=== PATIENT | male | born 2000 | race Caucasian/White ===

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

== ENCOUNTER 2019-11-27 14:54 | Emergency (ER) | payer BC, OTHER ==
[2019-11-27 14:59] VITALS: BP 128/66
[2019-11-27] MEDS ORDERED: LIDOCAINE 1% INJ-PF (10 MG/ML) 30 ML SDV INJ ONE (15:25)
[2019-11-27] MEDS ORDERED: IBUPROFEN 600 MG TABLET PO ONE (15:32)
--- NOTE | 2019-11-27 15:32 | ER Document Report ---
HPI - HPI Time Seen by Provider: 11/27/19 14:55 Pain Level: 3 Context: Healthy 19-year-old [id number] male with no past medical history presents to the emergency department with a dog bite to his left ring finger sustained just prior to arrival. Patient states he was breaking up a fight between the family dogs and 1 of them bit him. Prior to arrival he did soak the wound in some Shur-Clens. Tetanus is up-to-date. There is still active oozing blood at the wound site. - REPRODUCTIVE Reproductive: DENIES: : Past Medical History - Social History Smoking Status: Never Smoker Family History: Reviewed & Not Pertinent Patient has suicidal ideation: No Patient has homicidal ideation: No Renal/ Medical History: Denies: Hx Peritoneal Dialysis Musculoskeletal Medical History: Reports Hx Musculoskeletal Deformity, Reports Hx Musculoskeletal Trauma Past Surgical History: Reports: Hx Orthopedic Surgery - Left labrum tear - Immunizations Immunizations up to date: Yes Hx Diphtheria, Pertussis, Tetanus Vaccination: Yes Vertical Provider Document - CONSTITUTIONAL Notes: PHYSICAL EXAMINATION: Reviewed vital signs and charting by RN GENERAL: Alert, interacts well. No acute distress. HEAD: Normocephalic, atraumatic. EYES: Pupils equal and round. Extraocular movements intact. ENT: Oral mucosa moist NECK: Full range of motion. Trachea midline. EXTREMITIES: Moves all 4 extremities spontaneously. No edema, No cyanosis. There is a 1.5 cm laceration on the palmar aspect of the left ring finger DIP with some mild oozing and another wound on the dorsal aspect of the left ring finger, it is unclear if it is a puncture wound and a through and through. Flexor and extensor tendons intact to active motion and to resistance, brisk cap refill, sensation intact PSYCH: Normal affect, normal mood. SKIN: Warm, dry, normal turgor. See extremities - INFECTION CONTROL TRAVEL OUTSIDE OF THE [place] IN LAST 30 DAYS: No Course - Re-evaluation Re-evalutation: 11/27/19 15:30 The wound is []. The wound was copiously irrigated with normal saline and Betadine. The wound was explored for foreign bodies and none were found. The wound was prepped and draped in the normal sterile fashion. The wound was anesthetized using []. The edges were reapproximated using []. Bleeding was well controlled and the patient tolerated the procedure well. - Vital Signs Vital signs: Temp Pulse Resp BP Pulse Ox 98.1 F 72 16 128/66 H 100 11/27/19 14:58 11/27/19 14:58 11/27/19 14:58 11/27/19 14:58 11/27/19 14:58 Discharge - Discharge Clinical Impression: Laceration of left ring finger Qualifiers: Encounter type: initial encounter Damage to nail status: unspecified Foreign body presence: without foreign body Qualified Code(s): S61.215A - Laceration without foreign body of left ring finger without damage to nail, initial encounter Dog bite Qualifiers: Encounter type: initial encounter Qualified Code(s): W54.0XXA - Bitten by dog, initial encounter Condition: Good Disposition: HOME, SELF-CARE Additional Instructions: You were seen in the emergency department for a dog bite and a laceration. Because of the extent of the laceration we placed 3 loosely approximated sutures to cupola tapper helper healing. You have also been placed on prophylactic antibiotics. Please take Augmentin 2 times per day for 5 days. X-ray of your hand did not show any fracture, dislocation, or any retained foreign body. Also, we have placed your finger in a splint to prevent tension on the wound and to aid healing. Please also place antibiotic ointment on it 3 times per day and keep it dry for the first 24 hours. After that you can clean it with soap and water and apply a Band-Aid for protection. Please return to your primary doctor, the ED, or an urgent care in 7 days for suture removal. Return immediately if you develop spreading redness around the wound, pus from the wound, worsening pain, or a fever of >101. Keep the area clean and dry. Wash gently with soap and water twice daily and cover with antibiotic ointment. Referrals: HEALTH,EMPLOYEE [Primary Care Provider] - Follow up as needed
--- NOTE | 2019-11-27 15:53 | RADIOLOGY REPORT (SQ) ---
EXAM DESCRIPTION: HAND LEFT 3 VIEWS COMPLETED DATE/TIME: 11/27/2019 3:44 pm REASON FOR STUDY: dog bite L ring finger DIP COMPARISON: None. EXAM PARAMETERS: NUMBER OF VIEWS: Three views. TECHNIQUE: AP, lateral and oblique radiographic images acquired of the left hand. LIMITATIONS: None. FINDINGS: MINERALIZATION: Normal. BONES: No acute fracture or dislocation. No worrisome bone lesions. JOINTS: No effusions. Old well corticated avulsion fragment off the ulnar aspect, 3rd finger proximal phalanx at the PIP joint SOFT TISSUES: No soft tissue swelling. No foreign body. OTHER: No other significant finding. IMPRESSION: No acute findings TECHNICAL DOCUMENTATION: JOB ID: [id number] [employer]- All Rights Reserved Reading location - IP/workstation name: [id number]
[2019-11-27] MEDS ORDERED: AMOXICILLIN TR/POT CLAVULANATE 500-125 MG TAB PO ONE (16:24)
[2019-11-27] MEDS ORDERED: AMOXICILLIN TRIHYDRATE 500 MG CAPSULE PO ONE (16:25)
== END 2019-11-27 16:50 | disposition home or self-care (01) ==
LOC: ER 14:54
PROC: 0HQGXZZ Repair Left Hand Skin, External Approach (ICD-10-PCS; principal; 2019-11-27)
DX: S61.215A Laceration without foreign body of left ring finger without damage to nail, initial encounter (principal); W54.0XXA Bitten by dog, initial encounter
CPT/HCPCS: 99283; 73130; 12001; J3490

== ENCOUNTER 2019-12-27 16:39 | Emergency (ER) | payer OTHER ==
--- NOTE | 2019-12-27 16:47 | ER Document Report ---
ED Medical Screen (RME) - General Chief Complaint: Headache Stated Complaint: HEADACHE Time Seen by Provider: 12/27/19 16:40 Mode of Arrival: Ambulatory Information source: Patient, Parent Notes: Patient presents with his family for reports of altered mental status. Mom reports patient has not been acting himself. Has not been able to sleep for the last 4 days. Today he started shaking almost collapsed. He has been asking what his name is. No recent trauma no fever vomiting or diarrhea. No past medical history of mental health issues. I have greeted and performed a rapid initial assessment of this patient. A comprehensive ED assessment and evaluation of the patient, analysis of test results and completion of the medical decision making process will be conducted by additional ED providers. TRAVEL OUTSIDE OF THE [place] IN LAST 30 DAYS: No - Related Data Allergies/Adverse Reactions: cefdinir [Cefdinir] Allergy (Verified 11/27/19 15:11) Past Medical History Renal/ Medical History: Denies: Hx Peritoneal Dialysis Musculoskeltal Medical History: Reports Hx Musculoskeletal Deformity, Reports Hx Musculoskeletal Trauma Past Surgical History: Reports: Hx Orthopedic Surgery - Left labrum tear - Immunizations Immunizations up to date: Yes Hx Diphtheria, Pertussis, Tetanus Vaccination: Yes
[2019-12-27 17:15] LABS: ABSOLUTE LYMPHOCYTES (AUTO) 1.5 10^3/uL (0.5-4.7); ABSOLUTE MONOCYTES (AUTO) 0.5 10^3/uL (0.1-1.4); ABSOLUTE NEUT (AUTO) 5.1 10^3/uL (1.7-8.2); BASOPHILS % (AUTO) 0.5 % (0-2); EOSINOPHILS % (AUTO) 0.2 % (0-6); HEMATOCRIT 43.3 % (37.9-51.0); HEMOGLOBIN 15.1 g/dL (13.5-17.0); LYMPHOCYTES % (AUTO) 20.9 % (13-45); MEAN CORPUSCULAR HEMOGLOBIN 29.9 pg (27.0-33.4); MEAN CORPUSCULAR HGB CONC 34.9 g/dL (32.0-36.0); MEAN CORPUSCULAR VOLUME 86 fl (80-97); MONOCYTES % (AUTO) 7.3 % (3-13); PLATELET COUNT 264 10^3/uL (150-450); RED BLOOD COUNT 5.05 10^6/uL (4.35-5.55); RED CELL DISTRIBUTION WIDTH 12.7 % (11.5-14.0); SEGMENTED NEUTROPHILS % (AUTO) 71.1 % (42-78); TOTAL CELLS COUNTED % (AUTO) 100 %; WHITE BLOOD COUNT 7.2 10^3/uL (4.0-10.5)
[2019-12-27] MEDS ORDERED: HALOPERIDOL LACTATE INJ 5 MG/1 ML VIAL IV ONE (17:21)
--- NOTE | 2019-12-27 17:23 | RADIOLOGY REPORT (SQ) ---
EXAM DESCRIPTION: CT HEAD WITHOUT COMPLETED DATE/TIME: 12/27/2019 5:13 pm REASON FOR STUDY: ams COMPARISON: CT head 09/19/2017 TECHNIQUE: Axial images acquired through the brain without intravenous contrast. Images reviewed wi th bone, brain and subdural windows. Additional sagittal and coronal reconstructions were generated. Images stored on PACS. All CT scanners at this facility use dose modulation, iterative reconstruction, and/or weight based d osing when appropriate to reduce radiation dose to as low as reasonably achievable (ALARA). [facility]: Dose Right [facility]: CareDose [facility]: Dose Right [facility]: Teradose 4D [facility]: [employer] RADIATION DOSE: CT Rad equipment meets quality standard of care and radiation dose reduction techniq ues were employed. CTDIvol: 53.2 mGy. DLP: 1044 mGy-cm. mGy. LIMITATIONS: None. FINDINGS: VENTRICLES: Normal size and contour. CEREBRUM: No masses. No hemorrhage. No midline shift. No evidence for acute infarction. Normal gra y/white matter differentiation. No areas of low density in the white matter. CEREBELLUM: No masses. No hemorrhage. No alteration of density. No evidence for acute infarction. EXTRAAXIAL SPACES: No fluid collections. No masses. ORBITS AND GLOBE: No intra- or extraconal masses. Normal contour of globe without masses. CALVARIUM: No fracture. PARANASAL SINUSES: Small right maxillary sinus mucous retention cyst. SOFT TISSUES: No mass or hematoma. OTHER: No other significant finding. IMPRESSION: NORMAL BRAIN CT WITHOUT CONTRAST. EVIDENCE OF ACUTE STROKE: NO. COMMENT: Quality ID # [id number]: Final reports with documentation of one or more dose reduction techniques (e.g., Automated exposure control, adjustment of the mA and/or kV according to patient size, use of iterative reconstruction technique) TECHNICAL DOCUMENTATION: JOB ID: [id number] [employer]- All Rights Reserved Reading location - IP/workstation name: [email or web address]
--- NOTE | 2019-12-27 17:28 | ER Document Report ---
ED General - General Chief Complaint: Headache Stated Complaint: HEADACHE Time Seen by Provider: 12/27/19 16:40 Mode of Arrival: Ambulatory TRAVEL OUTSIDE OF THE [place] IN LAST 30 DAYS: No - HPI Notes: Patient is a 19-year-old male with no significant medical history who presents t o the emergency department for evaluation of altered mental status. His mother is the primary historian. She states that over the last several days patient has been exhibiting some strange behavior. He is been talking excessively about stress, worried about letting everyone down. He has been acting confused. Mother does not believe he has slept for the last 3 days. She gave him Benadryl without any significant results. He has lost about 15 pounds without any effort to do so. Today, he went to family talking about letting them down, then had a near syncopal episode. He has had intermittent shaking in bilateral upper extremities, 1 at a time. He was complaining of a headache to his mother prior to arrival. He initially stated it was there for a few days, tells me that he has only had pain for the last few minutes. He points to the left frontal region, than the right. - Related Data Allergies/Adverse Reactions: cefdinir [Cefdinir] Allergy (Verified 11/27/19 15:11) Home Medications: No medications Past Medical History - General Information source: Patient, Parent - Social History Smoking Status: Never Smoker Drug Abuse: Marijuana Family History: Reviewed & Not Pertinent, Other - Father's side of the family - unknown medical history Patient has suicidal ideation: No Patient has homicidal ideation: No Renal/ Medical History: Denies: Hx Peritoneal Dialysis Musculoskeletal Medical History: Reports Hx Musculoskeletal Deformity, Reports Hx Musculoskeletal Trauma Past Surgical History: Reports: Hx Orthopedic Surgery - Left labrum tear - Immunizations Immunizations up to date: Yes Hx Diphtheria, Pertussis, Tetanus Vaccination: Yes Review of Systems - Review of Systems Constitutional: See HPI EENT: No symptoms reported Cardiovascular: No symptoms reported Respiratory: No symptoms reported Gastrointestinal: No symptoms reported Genitourinary: No symptoms reported Musculoskeletal: No symptoms reported Skin: No symptoms reported Neurological/Psychological: See HPI Physical Exam - Vital signs Vitals: Resp BP Pulse Ox 19 136/79 H 100 12/27/19 16:40 12/27/19 16:40 12/27/19 16:40 - Notes Notes: Is a 19-year-old male who appears his stated age in no acute distress. He is lying in the bed. GCS 14. He opens his eyes to verbal stimuli, recognizes me. He exhibits an almost pill-rolling type motion to his hands intermittently. Vital signs reviewed, please refer to chart. Head is normocephalic, atraumatic. Pupils equal round, reactive to light. Neck is supple without meningismus. Heart is regular rate and rhythm. Lungs are clear to auscultation bilaterally. Abdomen is soft, nontender, normoactive bowel sounds throughout. Extremities without cyanosis, clubbing. Posterior calves are nontender. Peripheral pulses are equal. Skin is warm and dry. Patient is drowsy. He exhibits fine and then rough tremors in bilateral upper extremities intermittently. He becomes preoccupied with the IV, concerned he is "losing a lot of blood." There is no bleeding at the site. Patient is able to intermittently follow directions. He has no gross facial asymmetry, moves all 4 extremities spontaneously. Reflexes are symmetrical. Course - Re-evaluation Re-evalutation: 12/27/19 17:27 Patient presents to the emergency department for evaluation. On arrival his vitals are stable, he is afebrile. He has no signs of nuchal rigidity. He is, however, exhibiting constitutional symptoms in addition to psychiatric ones. Medical clearance labs are ordered. He does seem very disoriented, I consulted with Dr. Barker decision was made to proceed with Haldol. I am concerned that, if CT scan of the head is unremarkable, that MRI may be necessary to rule out other organic pathology. Mother is kept abreast of plan, we will continue to monitor. 12/27/19 18:03 Approximately 10 minutes after administration of Haldol, I was paged overhead, with concerns that the patient had seizure-like activity. I went and evaluated the patient. He did not have any seizure-like activity at that time. He did not appear significantly postictal, although I am aware that Haldol may in fact lowered the seizure threshold. Patient was medicated with Ativan. At this point, MRI of the brain is ordered to rule out arm organic pathology. Mother is amenable to this plan. We will continue to monitor. 12/27/19 20:31 Patient's MRI is unremarkable. The patient remained stable. Awaiting urinalysis. He did have a significant tachycardia upon standing to urinate. Orthostatic vital signs and fluids were ordered. We will continue to monitor. 12/27/19 21:45 Patient resting comfortably. He received IV fluids. Laboratory investigations are unremarkable. Patient's family feels comfortable taking him home. They already have an appointment with counselor tomorrow, we will continue to seek out possible psychiatric treatment. They understand that any changes in his status should prompt him to immediately return. We will send with a small amount of Ativan and close follow-up. - Vital Signs Vital signs: Temp Pulse Resp BP Pulse Ox 98.4 F 83 15 122/80 97 12/27/19 21:00 12/27/19 20:48 12/27/19 21:01 12/27/19 21:00 12/27/19 21:01 - Laboratory Result Diagrams: 12/27/19 16:45 12/27/19 16:45 Laboratory results interpreted by me: 12/27/19 12/27/19 16:45 20:37 Urine Ketones 20 H Salicylates < 1.0 L Acetaminophen < 10 L - Diagnostic Test Radiology reviewed: Reports reviewed Radiology results interpreted by me: 12/27/19 20:[address] 12/27/19 16:40 IMPRESSION: NORMAL BRAIN CT WITHOUT CONTRAST. EVIDENCE OF ACUTE STROKE: NO. Head MRI 12/27/19 17:56 IMPRESSION: UNREMARKABLE MRI OF THE BRAIN WITHOUT INTRAVENOUS GADOLINIUM CONTRAST. EVIDENCE OF ACUTE STROKE: NO. - EKG Interpretation by Me Additional EKG results interpreted by me: 12/27/19 18:04 Sinus tachycardia with rate of 101 bpm. Normal axis and intervals, no acute ST changes concerning for ischemia or infarction. Discharge - Discharge Clinical Impression: Altered mental status, unspecified, Orthostasis Condition: Stable Disposition: HOME, SELF-CARE Instructions: Altered Mental Status ([facility]) Additional Instructions: Follow-up with counselor tomorrow, primary care this week, and discuss psychiatry recommendations. Start Depakote as directed. Ativan as needed for restlessness, agitation. Return to the emergency department with worsening or new concerning symptoms of any sort.
[2019-12-27 17:36] LABS: ACETAMINOPHEN < 10 ug/mL (10-30); ALBUMIN 4.3 g/dL (3.5-5.0); ALCOHOL < 10 mg/dL (NONE DETECTED); ALKALINE PHOSPHATASE 103 U/L (38-126); ANION GAP 14 (5-19); ASPARTATE AMINO TRANSFERASE 40 U/L (17-59); BILIRUBIN,DIRECT 0.2 mg/dL (0.0-0.4); BILIRUBIN,TOTAL 0.9 mg/dL (0.2-1.3); BLOOD UREA NITROGEN 13 mg/dL (7-20); CALCIUM 9.4 mg/dL (8.4-10.2); CARBON DIOXIDE 24 mmol/L (22-30); CHLORIDE 99 mmol/L (98-107); GLUCOSE 94 mg/dL (75-110); POTASSIUM 3.8 mmol/L (3.6-5.0); SALICYLATE < 1.0 mg/dL (2.0-20.0); TOTAL PROTEIN 7.1 g/dL (6.3-8.2)
[2019-12-27] MEDS ORDERED: LORAZEPAM INJ 2 MG/1 ML VIAL IV ONE ×2 (17:41→17:59)
--- NOTE | 2019-12-27 18:50 | RADIOLOGY REPORT (SQ) ---
EXAM DESCRIPTION: MRI HEAD WITHOUT COMPLETED DATE/TIME: 12/27/2019 6:37 pm REASON FOR STUDY: altered mental status, seizure COMPARISON: CT head earlier performed on 12/27/2019. TECHNIQUE: Multiplanar imaging includes non-contrasted T1, T2, FLAIR, and diffusion with ADC map seq uences. Images stored on PACS. LIMITATIONS: None. FINDINGS: ANATOMY: No anomalies. Normal vascular flow voids. Pituitary fossa normal. CSF SPACES: Normal in size and contour. No hemorrhage. CEREBRUM: Sulci and gyri normal in size and contour. Normal white matter signal on FLAIR imaging. No evidence of hemorrhage, mass, or extraaxial fluid collection. No heterotopic kramer matter. Normal h ippocampal morphology and symmetric volume. POSTERIOR FOSSA: No signal alteration. No hemorrhage. No edema, masses or mass effect. Internal lashon tory canals, cerebello-pontine angles, mastoids normal. DIFFUSION IMAGING: Negative for acute or sub-acute infarction. ORBITS: No masses. Globes normal. PARANASAL SINUSES: Small right maxillary sinus mucous retention cyst. OTHER: No other significant finding. IMPRESSION: UNREMARKABLE MRI OF THE BRAIN WITHOUT INTRAVENOUS GADOLINIUM CONTRAST. EVIDENCE OF ACUTE STROKE: NO. TECHNICAL DOCUMENTATION: JOB ID: [id number] [employer]- All Rights Reserved Reading location - IP/workstation name: [email or web address]
[2019-12-27] MEDS ORDERED: NORMAL SALINE 1000 ML 1,000 ML IV ONE ×2 (20:30→20:48)
[2019-12-27 20:55] LABS: APPEARANCE,URINE CLEAR; BILIRUBIN,URINE NEGATIVE (NEGATIVE); COLOR,URINE YELLOW; GLUCOSE, URINE NEGATIVE (NEGATIVE); KETONES,URINE 20 mg/dL (NEGATIVE); LEUKOCYTE ESTERASE,URINE NEGATIVE (NEGATIVE); NITRITE,URINE NEGATIVE (NEGATIVE); PROTEIN,URINE NEGATIVE (NEGATIVE); URINE SPECIFIC GRAVITY 1.009; UROBILINOGEN,URINE NEGATIVE mg/dL (<2.0)
[2019-12-27 21:18] LABS: URINE AMPHETAMINES SCREEN NEGATIVE; URINE BARBITURATES SCREEN NEGATIVE; URINE BENZODIAZEPINES SCREEN NEGATIVE; URINE COCAINE SCREEN NEGATIVE; URINE MARIJUANA (THC) SCREEN NEGATIVE; URINE METHADONE SCREEN NEGATIVE; URINE PHENCYCLIDINE SCREEN NEGATIVE
[2019-12-27] MEDS ORDERED: DIVALPROEX SODIUM 250 MG TAB.SR.24H PO ONE (21:37)
[2019-12-27] MEDS ORDERED: LORAZEPAM 1 MG TABLET PO ONE (21:44)
--- NOTE | 2019-12-27 22:06 | ER Document Report ---
Doctor's Note Notes: 12/27/19 17:45 Pascual is a 19-year old male who presents to the emergency department with reported altered mental status, confusion, and acting bizarre. Per patient's mother, patient's older brother advised his mother approximately 3-4 days ago she should talk with the patient as he appeared depressed and stressed. She r eported she tried talking with her son who indicated he felt overwhelmed with school (the [employer] program), was struggling with low self-esteem, perceived failure, and overwhelming stress. Mother reported she had talked with patient about taking a leave of absence from this semester of school and resetting.Mother reported the patient was upset and cried uncontrollably at times, which is unlike him. She stated she believed he had no sleep in at least 3 days and he lost at least 15 pounds without intention. Mother reported the patient demonstrated intermittent asymmetrical shaking in one arm or the other. She indicated patient has no medical or mental health history and his father's side of the family for medical information is unknown. Assessment with Patient was limited secondary to his medical concerns. Patient indicated it was Saturday and reported he played basketball this morning with his brothers (mother reports this happened yesterday). He affirmed he was under a great deal of stress from school but was not able to provide any further meaningful information. While in the patient's room, he was observed to be restless, confused, stating he wanted to get into bed despite already being in bed, reporting having a headache for 20 minutes when he told his mother he experienced the headache for 3 days. Patient was given Haldol 5 mg IV by attending physician in an effort to decrease restless and help assist with sleep, however, approximately 10 minutes following administration of the Haldol the patient was observed to have intermittent, asymmetrical shaking, uncontrolled head / neck jerking, and rapid sitting up and jerking backwards. His behaviors were not entirely consistent with seizure like activity, however, following administration of lorazepam, the patient presented more oriented, identifying the nurses in the room as well as his mother. He made several statements such as " I just want my mom to be proud of me," " I just want to make my mom proud." Review of patient's labs and radiology reports revealed results within normal limits. Conversation with attending physician and patient mother, it is more likely than not the patient's presentation is the result of a combination of factors such as physical and mental exhaustion, tapped out coping resources, overwhelming stress from school and daily responsibilities, as well as internal maladaptive dialogue about his worthiness and ability to make his mother proud. At the time of this note, medical etiology has not been ruled as a cause for patient's ongoing presentation. Diagnoses 1. Deferred for now Impression/Plan: Continue to allow for medical work-up through attending physician. Psych to continue to monitor. Mother has already scheduled an outpatient therapy appointment for the patient on Saturday. A medication recommendation for depakote 250 mg twice per day for mood stabilization is made by consulting psychiatrist if no medical etiology is found. Avoidance of anti- psychotic medication is recommended given the patient's response to Haldol. Additionally, if not already done, an EEG and follow up with Neurology may prove beneficial to rule out new onset of seizures.
[2019-12-27 22:12] VITALS: BP 134/84
--- NOTE | 2019-12-28 00:21 | EKG REPORT ---
SEVERITY:- OTHERWISE NORMAL ECG - SINUS TACHYCARDIA : Confirmed by: Kiki Heard 28-Dec-2019 00:19:58
== END 2019-12-27 22:34 | disposition home or self-care (01) ==
LOC: ER 16:39
DX: R41.82 Altered mental status, unspecified (principal); I95.1 Orthostatic hypotension; R51 Headache
CPT/HCPCS: 93005; 99285; 96361; 96374; 96375; 36415; 87040; 80307 ×4; 85025; 80053; 81001; 70551; 70450; 93010; J1630; J3490; J2060; J7030

== ENCOUNTER 2019-12-29 12:03 | Emergency (ER) | payer OTHER ==
--- NOTE | 2019-12-29 12:10 | ER Document Report ---
ED Medical Screen (RME) - General Chief Complaint: Headache Stated Complaint: HEADACHE Time Seen by Provider: 12/29/19 12:04 Mode of Arrival: Ambulatory Information source: Parent Notes: 19-year-old male presented to ED for complaint of continued mental status changes altered mental status syncope with amnesia headaches. He was seen a couple days ago discharged home when he had a negative CT and MRI. I did speak with Dr. Castelan the radiologist. He stated that the patient needed an MRI with contrast and MRI. These have been ordered along with blood work. Mother stated that she talked with Dr. macdonald earlier today and she stated he needed to EEG but they are not able to get into psych or neurology for several weeks to a month. Patient has been ordered an MRI with contrast and MRA and was given Ativan 2 mg IV as he is not able to tolerate the MRI without sedation. Parents were at bedside. I have greeted and performed a rapid initial assessment of this patient. A comprehensive ED assessment and evaluation of the patient, analysis of test results and completion of medical decision making process will be conducted by an additional ED providers. TRAVEL OUTSIDE OF THE [place] IN LAST 30 DAYS: No - Related Data Allergies/Adverse Reactions: cefdinir [Cefdinir] Allergy (Verified 12/29/19 12:05) Past Medical History Renal/ Medical History: Denies: Hx Peritoneal Dialysis Musculoskeltal Medical History: Reports Hx Musculoskeletal Deformity, Reports Hx Musculoskeletal Trauma Past Surgical History: Reports: Hx Orthopedic Surgery - Left labrum tear - Immunizations Immunizations up to date: Yes Hx Diphtheria, Pertussis, Tetanus Vaccination: Yes Physical Exam - Vital signs Vitals: Temp Pulse Resp BP Pulse Ox 98.2 F 80 16 132/72 H 100 12/29/19 12:12/29/19 12:12/29/19 12:12/29/19 12:12/29/19 12:05 Course - Vital Signs Vital signs: Temp Pulse Resp BP Pulse Ox 98.2 F 80 16 132/72 H 100 12/29/19 12:05 12/29/19 12:05 12/29/19 12:12/29/19 12:05 12/29/19 12:05
[2019-12-29] MEDS ORDERED: LORAZEPAM INJ 2 MG/1 ML VIAL IV ONE ×2 (12:16→21:24)
[2019-12-29 12:47] LABS: ABSOLUTE BASOPHILS # (AUTO) 0.1 10^3/uL (0.0-0.2); ABSOLUTE LYMPHOCYTES (AUTO) 1.9 10^3/uL (0.5-4.7); ABSOLUTE MONOCYTES (AUTO) 0.5 10^3/uL (0.1-1.4); ABSOLUTE NEUT (AUTO) 4.1 10^3/uL (1.7-8.2); BASOPHILS % (AUTO) 0.8 % (0-2); EOSINOPHILS % (AUTO) 0.8 % (0-6); HEMATOCRIT 41.4 % (37.9-51.0); HEMOGLOBIN 15.1 g/dL (13.5-17.0); LYMPHOCYTES % (AUTO) 28.8 % (13-45); MEAN CORPUSCULAR HEMOGLOBIN 31.1 pg (27.0-33.4); MEAN CORPUSCULAR HGB CONC 36.3 g/dL (32.0-36.0); MEAN CORPUSCULAR VOLUME 86 fl (80-97); MONOCYTES % (AUTO) 6.9 % (3-13); PLATELET COUNT 295 10^3/uL (150-450); RED BLOOD COUNT 4.85 10^6/uL (4.35-5.55); RED CELL DISTRIBUTION WIDTH 12.7 % (11.5-14.0); SEGMENTED NEUTROPHILS % (AUTO) 62.7 % (42-78); TOTAL CELLS COUNTED % (AUTO) 100 %; WHITE BLOOD COUNT 6.5 10^3/uL (4.0-10.5)
[2019-12-29 12:59] LABS: INTERNATIONAL RATION (INR) 1.07; PROTHROMBIN TIME 13.9 SEC (11.4-15.4)
[2019-12-29 13:00] LABS: PARTIAL THROMBOPLASTIN TIME 28.5 SEC (23.5-35.8)
[2019-12-29 13:08] LABS: ALBUMIN 4.6 g/dL (3.5-5.0); ALKALINE PHOSPHATASE 116 U/L (38-126); ANION GAP 9 (5-19); ASPARTATE AMINO TRANSFERASE 28 U/L (17-59); BILIRUBIN,TOTAL 0.4 mg/dL (0.2-1.3); BLOOD UREA NITROGEN 11 mg/dL (7-20); CALCIUM 9.6 mg/dL (8.4-10.2); CARBON DIOXIDE 31 mmol/L (22-30); CHLORIDE 100 mmol/L (98-107); GLUCOSE 107 mg/dL (75-110); POTASSIUM 4.1 mmol/L (3.6-5.0); TOTAL PROTEIN 7.4 g/dL (6.3-8.2)
--- NOTE | 2019-12-29 13:14 | RADIOLOGY REPORT (SQ) ---
EXAM DESCRIPTION: MRA HEAD WITHOUT COMPLETED DATE/TIME: 12/29/2019 12:57 pm REASON FOR STUDY: continued altered mental status headache seizur COMPARISON: None. TECHNIQUE: Axial 3-D [id number] acquisition imaging performed through the brain in the area of t he [place]. Images reformatted using 3-D MIPS. LIMITATIONS: None. FINDINGS: SOURCE IMAGES: No unexpected findings on source images. No large masses. 3-D MIP: Normal variant hypoplastic left PCOM. No aneurysm. No occlusions. No significant stenosis . OTHER: No other significant finding. IMPRESSION: NORMAL MRA OF THE [place]. TECHNICAL DOCUMENTATION: JOB ID: [id number] [employer]- All Rights Reserved Reading location - IP/workstation name: [email or web address]
--- NOTE | 2019-12-29 13:16 | RADIOLOGY REPORT (SQ) ---
EXAM DESCRIPTION: MRI HEAD WITH COMPLETED DATE/TIME: 12/29/2019 12:57 pm REASON FOR STUDY: continued altered mental status headache seizur COMPARISON: Noncontrast 12/27/2019. TECHNIQUE: Axial coronal postgadolinium contrast T1 sequences. Images stored on PACS. CONTRAST TYPE AND DOSE: 10 mL Dotarem. RENAL FUNCTION: Not indicated. ACR Type II contrast agent associated with few, if any, unconfounded cases of NSF LIMITATIONS: None. FINDINGS: ANATOMY: No anomalies. Normal vascular flow voids. Pituitary fossa normal. CSF SPACES: Normal in size and contour. No hemorrhage. CEREBRUM: Sulci and gyri normal in size and contour. Normal white matter signal on FLAIR imaging. No evidence of hemorrhage, mass, or extraaxial fluid collection. No abnormal enhancement post contrast. POSTERIOR FOSSA: No signal alteration. No hemorrhage. No edema, masses, or mass effect. Internal lashon tory canals, cerebellopontine angles, mastoids normal. No enhancing lesions. No abnormal enhancement post contrast. DIFFUSION IMAGING: Negative for acute or subacute infarction. ORBITS: No masses. Globes normal. PARANASAL SINUSES: No fluid levels. Mucosa normal. OTHER: No other significant finding. IMPRESSION: NORMAL MRI OF THE BRAIN WITHOUT AND WITH INTRAVENOUS GADOLINIUM CONTRAST. EVIDENCE OF ACUTE STROKE: NO. TECHNICAL DOCUMENTATION: JOB ID: [id number] [employer]- All Rights Reserved Reading location - IP/workstation name: [email or web address]
--- NOTE | 2019-12-29 14:08 | ER Document Report ---
ED General - General Mode of Arrival: Ambulatory TRAVEL OUTSIDE OF THE [place] IN LAST 30 DAYS: No <TENA GALINDO - Last Filed: 12/29/19 19:59> <MARYANNE MATA - Last Filed: 12/29/19 21:37> - General Chief Complaint: Altered Mental Status Stated Complaint: HEADACHE Time Seen by Provider: 12/29/19 12:04 - HPI Notes: Patient is a 19-year-old male with no significant past medical history who presents to the emergency department for the second visit for altered mental status and changes in behavior that began 5 days ago for unknown reason. Mother states that he had an unremarkable work-up when he was here at his last visit and was placed on Depakote at that time. Mother states that things have just been getting worse since then. He continues to forget where he has been and what he has been doing that day. Mother states that he will stare off and have some twitching of his lips and tightening of his face. He will also have unusual finger and hand movements. Mother states that he has been fatigued and not acting himself. Denies any smoking, drugs, alcohol. Denies any synthetic drug use. He has had weight loss recently that is unintentional. Mother states that he had another near-syncopal episode this morning. He does complain of an intermittent right-sided headache that is dull and considered mild. No recent illness. No known tick bite. Triage provider noted that it looked like he was having an absence seizure in the room. Denies any current headache, fever, head injury, neck pain, changes in vision/hearing, URI, sore throat, chest pain, palpitations, syncope, cough, shortness of breath, wheeze, dyspnea, abdominal pain, nausea/vomiting/diarrhea, urinary retention, dysuria, hematuria, loss of control of bowel or bladder, numbness/tingling, saddle anesthesia, muscle paralysis/weakness, or rash. (TENA GALINDO) - Related Data Allergies/Adverse Reactions: cefdinir [Cefdinir] Allergy (Verified 12/29/19 12:05) Past Medical History - General Information source: Parent - Social History Smoking Status: Never Smoker Family History: Reviewed & Not Pertinent, Other - Father's side of the family - unknown medical history Patient has suicidal ideation: No Patient has homicidal ideation: No Renal/ Medical History: Denies: Hx Peritoneal Dialysis Musculoskeletal Medical History: Reports Hx Musculoskeletal Deformity, Reports Hx Musculoskeletal Trauma Past Surgical History: Reports: Hx Orthopedic Surgery - Left labrum tear - Immunizations Immunizations up to date: Yes Hx Diphtheria, Pertussis, Tetanus Vaccination: Yes <TENA GALINDO - Last Filed: 12/29/19 19:59> Review of Systems - Review of Systems -: Yes All other systems reviewed and negative <TENA GALINDO - Last Filed: 12/29/19 19:59> Physical Exam <TENA GALINDO - Last Filed: 12/29/19 19:59> - Vital signs Vitals: Temp Pulse Resp BP Pulse Ox 98.2 F 80 16 132/72 H 100 12/29/19 12:05 12/29/19 12:05 12/29/19 12:05 12/29/19 12:05 12/29/19 12:05 - Notes Notes: PHYSICAL EXAMINATION: GENERAL: Well-appearing, well-nourished and in no acute distress. A&Ox4. Answers questions appropriately. Pt does mumble some words and appears drowsy (he did receive 2mg ativan at triage for the MRI). He is not his normal personality (I do know him otherwise). HEAD: Atraumatic, normocephalic. Non-tender. EYES: Pupils equal round and reactive to light, extraocular movements intact, sclera anicteric, conjunctiva are normal. No nystagmus. vis powell intact. ENT: EAC clear b/l. TM's intact b/l without erythema, fluid, or perforation. Nares patent and without discharge. oropharynx clear without exudates. No tonsilar hypertrophy or erythema. Moist mucous membranes. No sinus tenderness. NECK: Normal range of motion, supple without lymphadenopathy. No rigidity/meningismus. No midline tenderness. LUNGS: Breath sounds clear to auscultation bilaterally and equal. No wheezes rales or rhonchi. HEART: Regular rate and rhythm without murmurs, rubs, gallops. ABDOMEN: Soft, nontender, nondistended abdomen. No guarding, no rebound. Normal bowel sounds present. No CVA tenderness bilaterally. Musculoskeletal: Ext b/l: FROM to passive/active. Strength 5+/5. No deficits noted. No bony tenderness of extremities. Extremities: No cyanosis, clubbing, or edema b/l. Peripheral pulses 2+. Capillary refill less than 2 seconds. NEUROLOGICAL: NIH 0. GCS 15. Cranial nerves grossly intact. Normal speech, normal gait. Normal sensory, motor exams. Reflexes 2+ b/l. AYUSH's negative. Pronator drift negative. Heel/mark, finger/nose wnl. Romberg neg. PSYCH: flat affect SKIN: Warm, Dry, normal turgor, no rashes or lesions noted. (TENA GALINDO) Course - Laboratory Result Diagrams: 12/29/19 12:20 12/29/19 12:20 <TENA GALINDO - Last Filed: 12/29/19 19:59> - Laboratory Result Diagrams: 12/29/19 12:20 12/29/19 12:20 - Diagnostic Test Radiology reviewed: Reports reviewed <MARYANNE MATA - Last Filed: 12/29/19 21:37> - Re-evaluation Re-evalutation: 12/29/19 14:[address] Mosqueda. We will try to admit for AMS. Patient is an afebrile, well-hydrated, 19-year-old male who presents with altered mental status, unspecified. Vitals are currently acceptable without significant tachycardia, tachypnea, or hypoxia. PE is otherwise unremarkable for any focal neurological deficits. Patient is nontoxic-appearing and is able to tolerate p.o. without difficulty. Labs and imaging currently unremarkable. Thyroid and urine are pending. I did add a Lyme titer as well as [place] spotted fever. If we cannot get him admitted here we will try for transfer for neurology. Family is in agreement with this plan. 12/29/19 14:[address] Navarrete, hospitalist, who would like a LP performed and to call him back for probable admission at that time. 12/29/19 14:19 Order placed for IR LP procedure. 12/29/19 16:16 After review again with mother it was decided that we would consult neurology. Patient can be admitted here otherwise but we would like their input for consult. Call placed to [facility] for consult. 12/29/19 16:45 I was able to speak with neurologist, Dr. Evon Tolentino, who agrees that the patient needs continuous EEG monitoring which we cannot provide here and they will accept for transfer to their facility. Family in agreement. 12/29/19 17:26 [facility] will not have a bed until tomorrow after their discharges. Family aware. 12/29/19 20:00 No new concerns or complaints Vitals acceptable. Pt stable for transfer if they leave within the hour; otherwise, Maryanne GOLF COURSE ASSISTANT will perform final eval/note prior to transfer. (TENA GALINDO) 12/29/19 21:37 Patient resting with eyes closed, arouses easily to voice. Vital signs stable. Patient denies any complaints at this time. Patient appears stable for transfer at this time. (MARYANNE MATA) - Vital Signs Vital signs: Temp Pulse Resp BP Pulse Ox 98.2 F 80 21 H 127/94 H 100 12/29/19 12:05 12/29/19 12:05 12/29/19 20:01 12/29/19 20:00 12/29/19 20:01 - Laboratory Laboratory results interpreted by me: 12/29/19 12/29/19 12:20 12:20 MCHC 36.3 H Carbon Dioxide 31 H 12/29/19 21:37 Labs- Entire Visit 12/29/19 12/29/19 12/29/19 12:20 12:20 12:20 WBC 6.5 RBC 4.85 Hgb 15.1 Hct 41.4 MCV 86 MCH 31.1 MCHC 36.3 H RDW 12.7 Plt Count 295 Lymph % (Auto) 28.8 [place] % (Auto) 6.9 Eos % (Auto) 0.8 Baso % (Auto) 0.8 Absolute Neuts (auto) 4.1 Absolute Lymphs (auto) 1.9 Absolute Monos (auto) 0.5 Absolute Eos (auto) 0.0 Absolute Basos (auto) 0.1 Seg Neutrophils % 62.7 PT 13.9 INR 1.07 APTT 28.5 Sodium 139.6 Potassium 4.1 Chloride 100 Carbon Dioxide 31 H Anion Gap 9 BUN 11 Creatinine 0.76 Est GFR ( Amer) > 60 Est GFR (MDRD) Non-Af > 60 Glucose 107 Calcium 9.6 Total Bilirubin 0.4 Direct Bilirubin 0.0 Neonat Total Bilirubin Not Reportable Neonat Direct Bilirubin Not Reportable Neonat Indirect Bili Not Reportable AST 28 ALT 21 Alkaline Phosphatase 116 Total Protein 7.4 Albumin 4.6 TSH Urine Color Urine Appearance Urine pH Ur Specific Mart Urine Protein Urine Glucose (UA) Urine Ketones Urine Blood Urine Nitrite (Reflex) Urine Bilirubin Urine Urobilinogen Leukocyte Esterase Rfl Urine WBC (Reflex) Urine Mucus (Auto) Urine Ascorbic Acid Fluid Tube Number CSF Volume CSF Appearance CSF Color CSF WBC CSF RBC CSF Glucose CSF Total Protein Urine Opiates Screen Urine Methadone Screen Ur Barbiturates Screen Valproic Acid Ur Phencyclidine Scrn Ur Amphetamines Screen U Benzodiazepines Scrn Urine Cocaine Screen U Marijuana (THC) Screen 12/29/19 12/29/19 12/29/19 12:20 12:20 14:06 WBC RBC Hgb Hct MCV MCH MCHC RDW Plt Count Lymph % (Auto) [place] % (Auto) Eos % (Auto) Baso % (Auto) Absolute Neuts (auto) Absolute Lymphs (auto) Absolute Monos (auto) Absolute Eos (auto) Absolute Basos (auto) Seg Neutrophils % PT INR APTT Sodium Potassium Chloride Carbon Dioxide Anion Gap BUN Creatinine Est GFR ( Amer) Est GFR (MDRD) Non-Af Glucose Calcium Total Bilirubin Direct Bilirubin Neonat Total Bilirubin Neonat Direct Bilirubin Neonat Indirect Bili AST ALT Alkaline Phosphatase Total Protein Albumin TSH 1.26 Urine Color YELLOW Urine Appearance CLEAR Urine pH 6.0 Ur Specific Mart 1.010 Urine Protein NEGATIVE Urine Glucose (UA) NEGATIVE Urine Ketones NEGATIVE Urine Blood NEGATIVE Urine Nitrite (Reflex) NEGATIVE Urine Bilirubin NEGATIVE Urine Urobilinogen NEGATIVE Leukocyte Esterase Rfl NEGATIVE Urine WBC (Reflex) < 1 Urine Mucus (Auto) RARE Urine Ascorbic Acid NEGATIVE Fluid Tube Number CSF Volume CSF Appearance CSF Color CSF WBC CSF RBC CSF Glucose CSF Total Protein Urine Opiates Screen Urine Methadone Screen Ur Barbiturates Screen Valproic Acid 63.7 Ur Phencyclidine Scrn Ur Amphetamines Screen U Benzodiazepines Scrn Urine Cocaine Screen U Marijuana (THC) Screen 12/29/19 12/29/19 12/29/19 14:06 15:15 15:15 WBC RBC Hgb Hct MCV MCH MCHC RDW Plt Count Lymph % (Auto) [place] % (Auto) Eos % (Auto) Baso % (Auto) Absolute Neuts (auto) Absolute Lymphs (auto) Absolute Monos (auto) Absolute Eos (auto) Absolute Basos (auto) Seg Neutrophils % PT INR APTT Sodium Potassium Chloride Carbon Dioxide Anion Gap BUN Creatinine Est GFR ( Amer) Est GFR (MDRD) Non-Af Glucose Calcium Total Bilirubin Direct Bilirubin Neonat Total Bilirubin Neonat Direct Bilirubin Neonat Indirect Bili AST ALT Alkaline Phosphatase Total Protein Albumin TSH Urine Color Urine Appearance Urine pH Ur Specific Mart Urine Protein Urine Glucose (UA) Urine Ketones Urine Blood Urine Nitrite (Reflex) Urine Bilirubin Urine Urobilinogen Leukocyte Esterase Rfl Urine WBC (Reflex) Urine Mucus (Auto) Urine Ascorbic Acid Fluid Tube Number 1 CSF Volume 9.8 CSF Appearance CLEAR CSF Color COLORLESS CSF WBC 1 CSF RBC 0 CSF Glucose 66 CSF Total Protein 26 Urine Opiates Screen NEGATIVE Urine Methadone Screen NEGATIVE Ur Barbiturates Screen NEGATIVE Valproic Acid Ur Phencyclidine Scrn NEGATIVE Ur Amphetamines Screen NEGATIVE U Benzodiazepines Scrn NEGATIVE Urine Cocaine Screen NEGATIVE U Marijuana (THC) Screen NEGATIVE 12/29/19 15:15 WBC RBC Hgb Hct MCV MCH MCHC RDW Plt Count Lymph % (Auto) [place] % (Auto) Eos % (Auto) Baso % (Auto) Absolute Neuts (auto) Absolute Lymphs (auto) Absolute Monos (auto) Absolute Eos (auto) Absolute Basos (auto) Seg Neutrophils % PT INR APTT Sodium Potassium Chloride Carbon Dioxide Anion Gap BUN Creatinine Est GFR ( Amer) Est GFR (MDRD) Non-Af Glucose Calcium Total Bilirubin Direct Bilirubin Neonat Total Bilirubin Neonat Direct Bilirubin Neonat Indirect Bili AST ALT Alkaline Phosphatase Total Protein Albumin TSH Urine Color Urine Appearance Urine pH Ur Specific Mart Urine Protein Urine Glucose (UA) Urine Ketones Urine Blood Urine Nitrite (Reflex) Urine Bilirubin Urine Urobilinogen Leukocyte Esterase Rfl Urine WBC (Reflex) Urine Mucus (Auto) Urine Ascorbic Acid Fluid Tube Number 4 CSF Volume 9.8 CSF Appearance CLEAR CSF Color COLORLESS CSF WBC 1 CSF RBC 0 CSF Glucose CSF Total Protein Urine Opiates Screen Urine Methadone Screen Ur Barbiturates Screen Valproic Acid Ur Phencyclidine Scrn Ur Amphetamines Screen U Benzodiazepines Scrn Urine Cocaine Screen U Marijuana (THC) Screen (MARYANNE MATA) Discharge <TENA GALINDO - Last Filed: 12/29/19 19:59> <MARYANNE MATA - Last Filed: 12/29/19 21:37> - Discharge Clinical Impression: Altered mental status, unspecified Qualifiers: Altered mental status type: unspecified Qualified Code(s): R41.82 - Altered mental status, unspecified Condition: Stable Disposition: [facility]
[2019-12-29] MEDS ORDERED: LIDOCAINE 1% INJ-PF (10 MG/ML) 30 ML SDV INJ ONE (14:13)
[2019-12-29 14:24] LABS: APPEARANCE,URINE CLEAR; BILIRUBIN,URINE NEGATIVE (NEGATIVE); COLOR,URINE YELLOW; GLUCOSE, URINE NEGATIVE (NEGATIVE); KETONES,URINE NEGATIVE (NEGATIVE); PROTEIN,URINE NEGATIVE (NEGATIVE); UROBILINOGEN,URINE NEGATIVE mg/dL (<2.0)
--- NOTE | 2019-12-29 15:50 | RADIOLOGY REPORT (SQ) ---
EXAM DESCRIPTION: LUMBAR PUNCTURE COMPLETED DATE/TIME: 12/29/2019 3:41 pm REASON FOR STUDY: AMS, with pressure please COMPARISON: None. FLUOROSCOPY TIME: 10 seconds 1 Images saved to PACS. TECHNIQUE: Fluoroscopic guided lumbar puncture with opening and closing pressures. LIMITATIONS: None. PROCEDURE: After written consent and assessment were obtained, the patient was brought into the fluo roscopy room and placed prone on the table. The patient's lower back was prepped in a sterile fashion and an entry site was selected under live fluoroscopic guidance. The entry site was anesthetized wit h 1% lidocaine. A 22 gauge needle was advanced through the skin and into the thecal sac at the level of L 3 -L 4 . An opening pressure of 15 units was obtained. After approximately 9.5 ml of CSF was loren ined, a closing pressure of 13 units was obtained. The needle was removed and a sterile bandage was p laced of the site. Specimens were sent to the lab for testing. A fluoroscopic spot image was saved to PACS confirming level access. FINDINGS: Clear CSF IMPRESSION: Lumbar puncture under fluoroscopy. No immediate complication. COMMENT: Patient medication list reviewed: Yes- Quality ID# [id number]:Eligible professional attests to doc umenting in the medical record they obtained, updated, or reviewed the patient's current medications. Quality ID [id number]: Final reports for procedures using fluoroscopy that document radiation exposure indic es, or exposure time and number of fluorographic images (if radiation exposure indices are not availa ble) TECHNICAL DOCUMENTATION: Job ID: [id number] [employer]- All Rights Reserved Reading location - IP/workstation name: [email or web address]
--- NOTE | 2019-12-29 15:50 | RADIOLOGY REPORT (SQ) ---
EXAM DESCRIPTION: FLUORO/NEEDLE PLACEMENT/SPINE COMPLETE DATE/TIME: 12/29/2019 3:41 pm REASON FOR STUDY: FEVER AMS FINDINGS: Please see combined report for performance of procedure and radiologic supervision and int erpretation. IMPRESSION: Please see combined report for performance of procedure and radiologic supervision and i nterpretation. Reading location - IP/workstation name: [email or web address]
[2019-12-29 16:05] LABS: APPEARANCE ALL TUBES CLEAR; COLOR ALL TUBES COLORLESS; CSF TOTAL VOLUME 9.8 CC; RED BLOOD CELL,CSF 0 /uL (0-10); VOLUME TUBE 1 3.1 CC; VOLUME TUBE 2 2.1 CC; VOLUME TUBE 3 2.5 CC; VOLUME TUBE 4 2.1 CC
[2019-12-29 16:06] LABS: WHITE BLOOD CELL,CSF 1 /uL (0-5)
[2019-12-29 16:08] LABS: CSF TUBE NUMBER 1
[2019-12-29 16:10] LABS: APPEARANCE ALL TUBES CLEAR; COLOR ALL TUBES COLORLESS; CSF TUBE NUMBER 4
[2019-12-29 16:11] LABS: CSF TOTAL VOLUME 9.8 CC; RED BLOOD CELL,CSF 0 /uL (0-10); VOLUME TUBE 1 3.1 CC; VOLUME TUBE 2 2.1 CC; VOLUME TUBE 3 2.5 CC; VOLUME TUBE 4 2.1 CC; WHITE BLOOD CELL,CSF 1 /uL (0-5)
[2019-12-29 16:19] LABS: GLUCOSE,CSF 66 mg/dL (40-70); PROTEIN,CSF 26 mg/dL (12-60)
[2019-12-29 18:47] LABS: URINE AMPHETAMINES SCREEN NEGATIVE; URINE BARBITURATES SCREEN NEGATIVE; URINE BENZODIAZEPINES SCREEN NEGATIVE; URINE COCAINE SCREEN NEGATIVE; URINE MARIJUANA (THC) SCREEN NEGATIVE; URINE METHADONE SCREEN NEGATIVE; URINE PHENCYCLIDINE SCREEN NEGATIVE
[2019-12-29] MEDS ORDERED: ACETAMINOPHEN 325 MG TABLET PO ONE (21:24)
[2019-12-29 21:47] VITALS: BP 133/74
[2019-12-30 23:36] LABS: ROCKY MTN SPOTTED FEV IGG EIA Negative (Negative)
[2019-12-31 07:18] LABS: LYME DISEASE IGM AB <0.80 index (0.00-0.79); ROCKY MTN SPOTTED FEVER IGM AB 0.42 index (0.00-0.89)
== END 2019-12-29 21:50 | disposition short-term general hospital (02) ==
LOC: ER 12:03
DX: R41.82 Altered mental status, unspecified (principal); R51 Headache; R41.3 Other amnesia; R55 Syncope and collapse; R25.3 Fasciculation; Z88.1 Allergy status to other antibiotic agents; R53.83 Other fatigue; R63.4 Abnormal weight loss
CPT/HCPCS: 62328 ×2; 99285; 96374; 36415; 87070; 87205; 84443; 85025; 85610; 85730; 89050; 82945; 84157 ×2; 80053; 81001; 80164; 86757 ×2; 80307; 84166; 86618 ×2; 86617 ×2; 70552; 70544; A9576; J2060; 77003

== ENCOUNTER → 2020-12-06 | Outpatient (CLI) | payer OTHER ==
--- NOTE | 2020-12-07 12:22 | RADIOLOGY REPORT (SQ) ---
EXAM DESCRIPTION: NOSE/NASAL BONES IMAGES COMPLETED DATE/TIME: 12/06/2020 7:35 pm REASON FOR STUDY: S00.33XA CONTUSION OF NOSE, INITIAL ENCOUNTER COMPARISON: None. NUMBER OF VIEWS: Three view. TECHNIQUE: Images of the facial bones acquired. LIMITATIONS: None. FINDINGS: ORBITS: No fracture. No foreign body. SINUSES: No mucosal thickening. No air fluid levels. FACIAL BONES: Nondisplaced nasal fracture. OTHER: No other significant finding. IMPRESSION: Nondisplaced nasal fracture. TECHNICAL DOCUMENTATION: JOB ID: [id number] 2010 [employer]- All Rights Reserved Reading location - IP/workstation name: [email or web address]
== END ==
LOC: RAD 19:23
PROVIDERS: ATTEND Nurse Practitioner Acute Care
DX: S02.2XXA Fracture of nasal bones, initial encounter for closed fracture (principal); X58.XXXA Exposure to other specified factors, initial encounter
CPT/HCPCS: 70160